=== PATIENT | male | born 1995 | race Caucasian/White ===

== ENCOUNTER 2020-05-09 07:00 | Outpatient (RCR) | payer OTHER, SELFPAY ==
--- NOTE | 2020-03-26 09:30 | PTOPEVAL ---
INITIAL PHYSICAL THERAPY EVALUATION and PLAN OF CARE Thank you for referring Isaac Boggs to [facility].? Isaac is scheduled to be seen for physical therapy?1x to once every 2 weeks for 6 weeks. Please review, sign, date and return this plan of care RICA. I agree with and certify that the following plan of care is medically necessary. Referring Physician Date Admitting Provider: Attending Provider: PHYSICIAN NOT ON STAFF Referring Provider: *PT Outpatient Evaluation Start: 03/26/20 08:15 Freq: Status: Active Protocol: Document 03/26/20 08:10 JOHN (Rec: 03/26/20 09:30 JOHN [email or web address]) Therapy Assessment Status Assessment Status Assessment Status Evaluation Outpatient Past Medical History Past Medical History No Past Medical/Surgical History Patient/Family Denies Significant Past Medical/ Surgical History Source of Past Medical History Patient Evaluation Information Problem Diagnosis urgency of urination, urethral pain Onset October 2018 Subjective Information just came on - feelings of Query Text:As Reported By Patient/ incomplete emptying, some Family discomfort with urination at times night time frequency - 1-2 times/night achiness sensation in lower abdominal region, can be worse after bowel movement Diagnostic Tests Other Tests For This Problem Yes: all have been negative Prior Level of Function Activity Level (Last 3 Months) Occupation automobile parker Hand Dominance Right Medications Home Meds (Include: OTC, RX, Vitamins, gabapentin Herbals, Dose, Route,and Frequency) Query Text:Home Med Entries Will No Longer Recall From Past Visits. Home Meds Must Be Re-entered With Each Visit. Comments Additional Prior Level of Function recreation - fish, camping Comments Pain Assessment Timing of Pain Assessment Timing of Pain Assessment Assessment Pain Scale Pain Scale Used Numeric (1 - 10) Self Report Pain Assessment Lower Abdomen Reported Pain Level 3 Pain Description Aching,Dull Radicular Pain Location can feel worse than a dull ache - not very often Lowest Pain Intensity 0 Greatest Pain Intensity 7 Pain Score Pain Score 3: Self Report Lower Extremity Range of Motion Hip Range of Motion Bilateral Reason Not Measured WNL/Left,WNL/Right Lower Extremity Muscle Strength Testing Hip Strength Bilateral R
--- NOTE | 2020-04-25 07:11 | PCPTNOTE ---
Micha called at 7:05 to cancel his 7:00 appointment. Something unexpected came up. Nelda reminded him that we were coming in early just for him, reinforced if he has to cancel in the future to try and call the day before if at all possible.
--- NOTE | 2020-05-09 07:55 | PTOPEVAL ---
PHYSICAL THERAPY DISCHARGE SUMMARY Thank you for referring Isaac Boggs to [facility].? Micha was seen in PT x 5 visits. Some gains were made in regards to abdominal discomfort and decreasing night time frequency to 1x/night. No change was achieved with incomplete bladder emptying sensation or discomfort with defecation. Will d/c him from PT at this time. I agree with Micha's discharge from PT. Referring Physician Date Admitting Provider: Attending Provider: PHYSICIAN NOT ON STAFF Referring Provider: *PT Outpatient Evaluation Start: 03/26/20 08:15 Freq: Status: Active Protocol: Document 05/09/20 07:03 JOHN (Rec: 05/09/20 07:52 JOHN [email or web address]) Therapy Assessment Status Assessment Status Assessment Status Discharge Outpatient Past Medical History Past Medical History No Past Medical/Surgical History Patient/Family Denies Significant Past Medical/ Surgical History Source of Past Medical History Patient Evaluation Information Problem Subjective Information Micha reports the abdominal Query Text:As Reported By Patient/ discomfort is better this week Family . Discomfort after defecation is slightly better. Incomplete emptying of bladder sensation is about the same. Night time urinary frequency - 1x/night. Pain Assessment Timing of Pain Assessment Timing of Pain Assessment Assessment Pain Scale Pain Scale Used Numeric (1 - 10) Self Report Pain Assessment Lower Abdomen Reported Pain Level 0 Lowest Pain Intensity 0 Greatest Pain Intensity 6 Pain Score Pain Score 0: Self Report Palpation Assessment Palpation Palpation Mild R sided abdominal soft tissue tension, mild R soft tissue tension felt in R LE - no L sided discomfort or soft tissue tension. PT Clinical Summary Clinical Summary Protocol: PTEVCODE PT Clinical Summary Micha has made some gains in regards to decrease in abdominal discomfort. He is still having residual bladder sensation with emptying which has not changed much during the course of PT. He still has 1 night time urination. Bladder urgency strategies were attempted -which did not seem to be very helpful in
== END 2020-05-09 11:05 | disposition home or self-care (01) ==
LOC: ANHPT 07:00
DX: R39.15 Urgency of urination (principal); R39.89 Other symptoms and signs involving the genitourinary system
CPT/HCPCS: 97014; 97110; 97140; 97161; G0283